=== PATIENT | female | born 1985 | race American Indian/Alaskan Native ===

== ENCOUNTER 2017-10-02 09:16 | Emergency (ER) | payer SELFPAY ==
--- NOTE | 2017-10-02 12:05 | Emergency Department Report ---
Chief Complaint: Extremity Problem,Nontraumatic Stated Complaint: [employer] - HPI History of Present Illness: 32-year-old female presents via EMS after being released from [facility] this morning. While walking from [facility] she developed leg pain. When she got to the emergency department she complains of right upper quadrant abdominal pain. No nausea, vomiting, fever. She has a history of CHF, liver cirrhosis from previous alcohol abuse and Buerger's disease. She says that she has a primary care physician at [facility]. - ROS Review of Systems: She is positive for leg pain and abdominal pain. She has negative for fever, nausea, vomiting, chest pain, shortness of breath - Exam Vital Signs: Vital Signs 10/02/17 09:34 Blood Pressure 116/87 Physical Exam: The patient is in no apparent acute distress. Heart and lungs sounds are normal to auscultation. Mild tenderness to palpation to the right upper quadrant of the abdomen. 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 MSE screening note: Focused history and physical exam performed. Due to findings the following was ordered: I ordered a CBC, CMP, urinalysis and test, coags. Due to the patient' s comorbidities including the Buerger's disease, I suspect she will need a slightly longer workup and will be brought to the main emergency department side. ED Disposition for MSE Condition: Stable Referrals: PRIMARY CARE [Primary Care Provider] - 3-5 Days
[2017-10-02 13:33] LABS: Basophils # (Auto) 0.1 K/mm3 (0.0-0.1); Basophils % (Auto) 1.3 % (0.0-1.8); Eosinophils # (Auto) 0.1 K/mm3 (0.0-0.4); Eosinophils % (Auto) 1.4 % (0.0-4.3); Hematocrit 40.3 % (30.3-42.9); Hemoglobin 12.8 gm/dl (10.1-14.3); Lymphocytes # (Auto) 1.7 K/mm3 (1.2-5.4); Lymphocytes % (Auto) 20.7 % (13.4-35.0); Mean Corpuscular HGB Conc 32 % (30-34); Mean Corpuscular Hemoglobin 27 pg (28-32); Mean Corpuscular Volume 86 fl (79-97); Monocytes # (Auto) 0.4 K/mm3 (0.0-0.8); Monocytes % (Auto) 5.3 % (0.0-7.3); Platelet Count 506 K/mm3 (140-440); Red Blood Count 4.69 M/mm3 (3.65-5.03)
[2017-10-02 13:49] LABS: INR 1.41 (0.87-1.13)
[2017-10-02 13:57] LABS: Alanine Aminotransferase 26 units/L (7-56); Albumin 4.2 g/dL (3.9-5); BUN/Creatinine Ratio 18; Blood Urea Nitrogen 11 mg/dL (7-17); Hemolysis Index 35; Lipase 31 units/L (13-60)
--- NOTE | 2017-10-02 15:41 | Emergency Department Report ---
ED General Adult HPI - General Chief complaint: Extremity Problem,Nontraumatic Stated complaint: [facility]OSP[facility] Time Seen by Provider: 10/02/17 15:30 Source: patient, EMS Mode of arrival: Ambulatory Limitations: No Limitations - History of Present Illness Initial comments: Patient is 32 years old female was just released from shelter this morning came to the ER complaining of left lower chest pain and bilateral lower extremity pain that is started this morning. Patient denied any fever, shortness of breath or cough. No injury. Patient had history of Buerger disease. Patient denied any abdominal pain, nausea or vomiting. No urinary symptoms. - Related Data Allergies Allergy/AdvReac Type Severity Reaction Status Date / Time No Known Allergies Allergy Unverified 10/02/17 09:44 ED Review of Systems ROS: Stated complaint: HOSPITAL [facility]RIER Other details as noted in HPI Comment: All other systems reviewed and negative Constitutional: denies: chills, fever Cardiovascular: chest pain. denies: palpitations, dyspnea on exertion, orthopnea, edema Gastrointestinal: denies: abdominal pain, nausea, vomiting, diarrhea, constipation, hematemesis Musculoskeletal: denies: back pain Neurological: denies: headache, weakness, numbness, paresthesias, confusion ED Past Medical Hx - Past Medical History Previous Medical History?: Yes Hx Congestive Heart Failure: Yes Hx Liver Disease: Yes (Cirrhosis) Additional medical history: Buerger's Disease - Surgical History Past Surgical History?: Yes Additional Surgical History: C section - Social History Smoking Status: Current Every Day Smoker Substance Use Type: None ED Physical Exam - General Limitations: No Limitations General appearance: alert, in no apparent distress - Head Head exam: Present: atraumatic, normocephalic, normal inspection - Eye Eye exam: Present: normal appearance, PERRL - ENT ENT exam: Present: normal exam, normal orophraynx, mucous membranes moist - Neck Neck exam: Present: normal inspection, full ROM. Absent: tenderness, meningismus, lymphadenopathy - Respiratory Respiratory exam: Present: normal lung sounds bilaterally, chest wall tenderness (left lower chest tenderness). Absent: respiratory distress, wheezes , rales, rhonchi, stridor, accessory muscle use, decreased breath sounds, prolonged expiratory - Cardiovascular Cardiovascular Exam: Present: regular rate, normal rhythm, normal heart sounds - GI/Abdominal GI/Abdominal exam: Present: soft, normal bowel sounds. Absent: distended, tenderness, guarding, rebound, rigid, organomegaly, mass, bruit, pulsatile mass , hernia - Extremities Exam Extremities exam: Present: normal inspection, full ROM, normal capillary refill. Absent: calf tenderness - Back Exam Back exam: Present: normal inspection, full ROM. Absent: tenderness, CVA tenderness (R), CVA tenderness (L), muscle spasm, paraspinal tenderness, vertebral tenderness, rash noted - Neurological Exam Neurological exam: Present: alert, oriented X3, CN II-XII intact, normal gait. Absent: abnormal gait, motor sensory deficit - Psychiatric Psychiatric exam: Absent: depressed, agitated, anxious, homicidal ideation, suicidal ideation - Skin Skin exam: Present: warm, intact, normal color ED Course Vital Signs 10/02/17 10/02/17 10/02/17 09:34 15:32 16:00 Temperature 98.1 F Pulse Rate 82 Respiratory 17 21 Rate Blood Pressure 116/87 Blood Pressure 115/67 [Left] O2 Sat by Pulse 100 Oximetry 10/02/17 10/02/17 16:26 17:00 Temperature Pulse Rate 89 Respiratory 18 23 Rate Blood Pressure 111/62 Blood Pressure [Left] O2 Sat by Pulse 100 Oximetry ED Medical Decision Making - Lab Data Result diagrams: 10/02/17 12:45 10/02/17 12:45 - Radiology Data Radiology results: report reviewed Referring Physician: JAVIER FIGUEROA Patient Name: CHELO SOMMER Date of : 1985 Sex: Female Report Date: 2017-10-02 Report Status: Finalized Findings [address] [address] Cat Scan Report Signed Patient: CHELO SOMMER MR#: [id number] : 1985 Acct:[id number] Age/Sex: 32 / F ADM Date: 10/02/17 Loc: ED Attending Dr: Ordering Physician: JAVIER FIGUEROA Date of Service: 10/02/17 Procedure(s): CT angio chest Accession Number(s): [id number] cc: JAVIER FIGUEROA FINAL REPORT EXAM: CT ANGIO CHEST HISTORY: CHEST PAIN TECHNIQUE: Axial images were performed from the lung apices to the bases following IV contrast administration. Multiplanar reformats are performed on the acquisition scanner. Comparison: Chest x-ray same day FINDINGS: There is bilateral subpleural bleb formation in the apices. Left hemithorax has smaller volume than the right. There are no infiltrates, areas of consolidation, or effusions. There is an air-fluid level in the esophagus. There is no discrete adenopathy. Air-fluid level throughout the esophagus with distension. Decompression distally. Imaged upper abdomen is unremarkable. Main pulmonary outflow tract, left and right pulmonary arteries are suboptimally enhanced due to the contrast bolus timing. No central embolus. Cannot assess peripherally. There also hyperdynamic motion of the heart IMPRESSION: Suboptimal contrast bolus to assess for pulmonary embolus. No saddle embolus. Cannot assess peripherally. Air-fluid level throughout the esophagus with decompression distally, question achalasia. Correlation with esophagram or upper endoscopy may be valuable. Clear lungs with bilateral apical subpleural bleb formation, advanced for the patient's age and lack of other pathology in the lungs. No pneumothorax. No pneumonia. Transcribed By: MP Dictated By: IMELDA ASHER Electronically Authenticated By: IMELDA ASHER Signed Date/Time: 10/02/17 1513 DD/ 1513 TD/TT: 10/02/17 1513 Critical care attestation.: If time is entered above; I have spent that time in minutes in the direct care of this critically ill patient, excluding procedure time. ED Disposition Clinical Impression: Chest pain Disposition: DC-01 TO HOME OR SELFCARE Is pt being admited?: No Condition: Stable Instructions: Chest Pain (ED), Costochondritis (ED) Referrals: PRIMARY CARE, [Primary Care Provider] - 3-5 Days
[2017-10-02 18:15] LABS: HCG Qualitative,Urine Negative (Negative)
[2017-10-02 18:17] LABS: Bilirubin,Urine NEG (Negative); Blood,Urine NEG (Negative); Color,Urine Yellow (Yellow); Nitrite,Urine NEG (Negative); Urobilinogen,Urine < 2.0 mg/dL (<2.0)
--- NOTE | 2017-10-02 19:16 | Cat Scan Report ---
FINAL REPORT EXAM: CT ANGIO CHEST HISTORY: CHEST PAIN TECHNIQUE: Axial images were performed from the lung apices to the bases following IV contrast administration. Multiplanar reformats are performed on the acquisition scanner. Comparison: Chest x-ray same day FINDINGS: There is bilateral subpleural bleb formation in the apices. Left hemithorax has smaller volume than the right. There are no infiltrates, areas of consolidation, or effusions. There is an air-fluid level in the esophagus. There is no discrete adenopathy. Air-fluid level throughout the esophagus with distension. Decompression distally. Imaged upper abdomen is unremarkable. Main pulmonary outflow tract, left and right pulmonary arteries are suboptimally enhanced due to the contrast bolus timing. No central embolus. Cannot assess peripherally. There also hyperdynamic motion of the heart IMPRESSION: Suboptimal contrast bolus to assess for pulmonary embolus. No saddle embolus. Cannot assess peripherally. Air-fluid level throughout the esophagus with decompression distally, question achalasia. Correlation with esophagram or upper endoscopy may be valuable. Clear lungs with bilateral apical subpleural bleb formation, advanced for the patient's age and lack of other pathology in the lungs. No pneumothorax. No pneumonia.
--- NOTE | 2017-10-02 19:17 | XRay Report ---
FINAL REPORT EXAM: XR CHEST 1V AP HISTORY: chest pain TECHNIQUE: Frontal chest x-ray Comparison: CT same day FINDINGS: Normal heart size. Lungs are clear and well expanded without focal infiltrate or consolidation. Imaged axial skeleton is grossly normal. IMPRESSION: No acute cardiopulmonary disease.
[2017-10-02 20:55] VITALS: BP 112/70
== END 2017-10-02 20:54 | disposition home or self-care (01) ==
LOC: ED 09:16
DX: R07.9 Chest pain, unspecified (principal); F17.200 Nicotine dependence, unspecified, uncomplicated; I50.9 Heart failure, unspecified
CPT/HCPCS: 36415; 71045; 71275; 80053; 81001; 81025; 82550; 83690; 85025; 85379; 85610; 85730; 93005; 93010; 99285; Q9967